=== PATIENT | female | born 1950 | race Caucasian/White ===

== ENCOUNTER 2016-11-03 09:02 | Inpatient (IN) | payer BC, MEDICARE ==
[~2016-11-03] VITALS: Ht 160.1 cm; Wt 79.3 kg
[~2016-11-03 09:02] MED LIST: ADALAT CC60 MG PO; ASPIR-LOW81 MG PO; ASPIRIN 81M81 MG/TA2 PO; BYETTA 5MC300 MCG/SY SC; CRESTOR 10MG10 MG PO; DIOVAN160 MG PO; DIOVAN320 MG PO; FERROUS SU325 MG/TAB PO; FISH OIL CONC1000 MG PO; FORTAMET500 MG PO; GLIPIZIDE XL10 MG PO; GLUCOPHAGE1000 MG PO; GLUCOPHAGE500 MG/TAB PO; GLUCOTROL10 MG PO; INDOCIN SR 75MG75 MG PO; MAXZIDE 50 MG-71 TAB PO; NIFEDIPINE ER60 MG PO; NORCO 325 MG-7.1 TAB PO; ROXICODONE 55 MG/TAB PO; SENOKOT8.6 MG PO; TRIAMTERENE AND1 TA1 PO; ULTRAM 50MG TAB50 MG PO; VITAMIN D 50,1.25 MG PO; XARELTO10 MG PO
[2017-01-03] VITALS (10 sets, daily range): BP systolic 109–136; BP diastolic 45–66; PULSE 62–93; TEMP 96.9–98.3
[2017-01-03] MEDS ORDERED: VITAMIN D32000 IU PO (08:04)
[2017-01-03] MEDS ORDERED: VITAMIN C500 MG PO (08:04)
[2017-01-03] MEDS ORDERED: FOLIC ACID 40400 MCG PO (08:04)
[2017-01-04] VITALS (7 sets, daily range): BP systolic 132–143; BP diastolic 45–61; PULSE 69–110; TEMP 98.2–99.5
[2017-01-04 07:07] LABS: HEMATOCRIT 25.1 % (37.0-47.0); HEMOGLOBIN 7.8 g/dl (12.5-16.0)
[2017-01-05 05:39] VITALS: BP 130/65; PULSE 78; TEMP 98.5
[2017-01-05 06:55] LABS: HEMATOCRIT 24.4 % (37.0-47.0); HEMOGLOBIN 7.8 g/dl (12.5-16.0)
[2017-01-05 07:04] VITALS: BP 144/61; PULSE 103; TEMP 98.2
[2017-01-05 11:28] VITALS: BP 136/54; PULSE 97; TEMP 98.1
[2017-01-05] MEDS ORDERED: ROXICODONE 55 MG/TAB PO (14:19)
[2017-01-05] MEDS ORDERED: NORCO 325 MG-7.1 TAB PO (14:20)
== END 2017-01-05 14:29 | disposition home or self-care (01) | DRG 470 ==
LOC: JCC 01-03 07:00
PROVIDERS: Orthopaedic Surgery
PROC: 0SRB0JA Replacement of Left Hip Joint with Synthetic Substitute, Uncemented, Open Approach (ICD-10-PCS; principal; 2017-01-03 10:00)
DX: M16.52 Unilateral post-traumatic osteoarthritis, left hip (principal)
CPT/HCPCS: A9284; C1776; J0690; J2250; J2274; J2704; J7030; J7120

== ENCOUNTER → 2016-12-29 | Outpatient (CLI) | payer BC ==
[~2016-12-29] MED LIST changes: +FOLIC ACID 40400 MCG PO; +VITAMIN C500 MG PO; +VITAMIN D32000 IU PO
== END ==
LOC: COL.LAB 11:06
DX: M16.12 Unilateral primary osteoarthritis, left hip (principal); Z96.642 Presence of left artificial hip joint

== ENCOUNTER 2017-03-19 13:59 | Outpatient (RCR) | payer OTHER | END 2017-04-17 07:53 | LOC: WSOH 13:59 | DX: S01.81XA Laceration without foreign body of other part of head, initial encounter (principal); W01.0XXA Fall on same level from slipping, tripping and stumbling without subsequent striking against object, initial encounter; Y99.0 Civilian activity done for income or pay; Z96.643 Presence of artificial hip joint, bilateral ==

== ENCOUNTER → 2019-05-20 | Outpatient (CLI) | payer BC | LOC: COL.RAD 10:15 | DX: N28.1 Cyst of kidney, acquired (principal); N17.9 Acute kidney failure, unspecified ==

== ENCOUNTER → 2020-03-02 | Outpatient (CLI) | payer BC | LOC: MC.RAD 09:27 | DX: Z12.31 Encounter for screening mammogram for malignant neoplasm of breast (principal) ==

== ENCOUNTER → 2021-03-28 | Outpatient (CLI) | payer BC | LOC: MC.RAD 11:22 | DX: Z12.31 Encounter for screening mammogram for malignant neoplasm of breast (principal) ==

== ENCOUNTER → 2022-02-10 | Outpatient (CLI) | payer BC | LOC: COL.RAD 06:57 | DX: M48.02 Spinal stenosis, cervical region (principal); M47.812 Spondylosis without myelopathy or radiculopathy, cervical region ==

== ENCOUNTER → 2024-05-15 | Outpatient (CLI) | payer MEDICARE | LOC: MC.RAD 09:03 | DX: Z12.31 Encounter for screening mammogram for malignant neoplasm of breast (principal) ==